=== PATIENT | female | born 1950 | race Caucasian/White ===

== ENCOUNTER 2017-10-15 08:17 | Emergency (ER) | payer MEDICARE, OTHER ==
[~2017-10-15] VITALS: Ht 172.7 cm; Wt 79.4 kg
[~2017-10-15 08:17] MED LIST: GABA300 PO; HYDR1TAB94 PO; METPRE4DP PO; Robaxin-750750 MG PO; TERB250 PO; Voltaren100 GM TOP
[2017-10-15] MEDS ORDERED: Percocet 10-321 EACH PO (09:52)
[2017-10-15] MEDS ORDERED: IBUP600 PO (09:52)
[2017-10-15] MEDS ORDERED: CYCL10 PO (09:52)
[2017-10-15] MEDS ORDERED: ONDA4ODT MM (10:05)
== END 2017-10-15 11:20 | disposition home or self-care (01) ==
LOC: ER 08:17
DX: M54.5 Low back pain (principal); G89.29 Other chronic pain; Z88.0 Allergy status to penicillin; Z79.899 Other long term (current) drug therapy; Z87.891 Personal history of nicotine dependence
CPT/HCPCS: 72100; 96372; 99284; J1885; J3360

== ENCOUNTER → 2017-12-12 | Outpatient (CLI) | payer MEDICARE, OTHER ==
[~2017-12-12] MED LIST changes: +CYCL10 PO; +IBUP600 PO; +ONDA4ODT MM; +Percocet 10-321 EACH PO
== END ==
LOC: PLD 13:10 → LAB SHORT 13:10
DX: L82.1 Other seborrheic keratosis (principal)
CPT/HCPCS: 88305

== ENCOUNTER 2018-10-29 10:59 | Day surgery (SDC) | payer MEDICARE, OTHER ==
[~2018-10-29] VITALS: Ht 172.7 cm; Wt 74.6 kg
[~2018-10-29 10:59] MED LIST changes: +LISI20 PO; +LO-DOSE ASPIRIN81 MG PO; +MELO7.5 PO
[2018-10-29] MEDS ORDERED: GABA400 PO (11:52)
[2018-10-29] MEDS ORDERED: VALA500 (11:53)
--- NOTE | 2018-10-29 11:55 | NUR ---
10/29/18 1155 Delgado Ramirez CALL LIGHT WITHIN REACH
== END 2018-10-29 12:50 | disposition home or self-care (01) ==
LOC: ORSCSDS 10:59
PROVIDERS: Internal Medicine Gastroenterology
PROC: 0D758ZZ Dilation of Esophagus, Via Natural or Artificial Opening Endoscopic (ICD-10-PCS; principal; 2018-10-29 13:00)
PROC: 0DB68ZX Excision of Stomach, Via Natural or Artificial Opening Endoscopic, Diagnostic (ICD-10-PCS; principal; 2018-10-29 13:00)
DX: R13.10 Dysphagia, unspecified (principal); K22.10 Ulcer of esophagus without bleeding; K21.9 Gastro-esophageal reflux disease without esophagitis; K44.9 Diaphragmatic hernia without obstruction or gangrene; K22.2 Esophageal obstruction; K29.70 Gastritis, unspecified, without bleeding; I10 Essential (primary) hypertension; Z86.19 Personal history of other infectious and parasitic diseases; Z86.73 Personal history of transient ischemic attack (TIA), and cerebral infarction without residual deficits; Z79.899 Other long term (current) drug therapy; Z79.82 Long term (current) use of aspirin
CPT/HCPCS: 88305; 88312; J2704; J7120

== ENCOUNTER → 2020-04-25 | Outpatient (CLI) | payer MEDICARE, OTHER ==
[~2020-04-25] MED LIST changes: +GABA400 PO; +VALA500
[2020-04-26 13:34] LABS: Stool Occult Bld Immuno 1 Positive (NEGATIVE)
== END | disposition home or self-care (01) ==
LOC: LAB 07:00
PROVIDERS: Nurse Practitioner Family
DX: Z12.11 Encounter for screening for malignant neoplasm of colon (principal)
CPT/HCPCS: G0328

== ENCOUNTER 2020-07-15 09:52 | Day surgery (SDC) | payer MEDICARE, OTHER ==
[~2020-07-15] VITALS: Ht 172.7 cm; Wt 76.5 kg
== END 2020-07-15 12:18 | disposition home or self-care (01) ==
LOC: ORSCSDS 09:52
PROVIDERS: Internal Medicine Gastroenterology
PROC: 0DBK8ZX Excision of Ascending Colon, Via Natural or Artificial Opening Endoscopic, Diagnostic (ICD-10-PCS; principal; 2020-07-15 11:15)
PROC: 0DBN8ZX Excision of Sigmoid Colon, Via Natural or Artificial Opening Endoscopic, Diagnostic (ICD-10-PCS; principal; 2020-07-15 11:15)
DX: K92.1 Melena (principal); K63.5 Polyp of colon; D12.2 Benign neoplasm of ascending colon; K57.30 Diverticulosis of large intestine without perforation or abscess without bleeding; Z86.19 Personal history of other infectious and parasitic diseases; K64.8 Other hemorrhoids; Z87.891 Personal history of nicotine dependence; Z79.82 Long term (current) use of aspirin; Z79.899 Other long term (current) drug therapy
CPT/HCPCS: 88305; J2405; J2704; J7120

== ENCOUNTER 2022-06-25 11:08 | Emergency (ER) | payer MEDICARE, OTHER ==
[~2022-06-25] VITALS: Ht 177.8 cm; Wt 72.6 kg
[2022-06-25] MEDS ORDERED: Norco 5-325 Ta1 EACH PO ×2 (12:12→12:53)
== END 2022-06-25 12:22 | disposition home or self-care (01) ==
LOC: ER 11:08
DX: M54.50 Low back pain, unspecified (principal); G89.29 Other chronic pain; I10 Essential (primary) hypertension; Z88.0 Allergy status to penicillin; Z88.5 Allergy status to narcotic agent; Z88.6 Allergy status to analgesic agent; Z79.899 Other long term (current) drug therapy; Z79.82 Long term (current) use of aspirin; Z87.891 Personal history of nicotine dependence
CPT/HCPCS: 72100; A9270

== ENCOUNTER 2024-06-30 09:26 | Day surgery (SDC) | payer MEDICARE, OTHER ==
[~2024-06-30] VITALS: Ht 172.7 cm; Wt 68.8 kg
[~2024-06-30 09:26] MED LIST changes: +Lactated Ringer's 1,000 ML IV ONE; +Norco 5-325 Ta1 EACH PO; +propofoL 50 ML IV ONE
[2024-06-30] MEDS ORDERED: ATOR10 (09:51)
[2024-06-30] MEDS ORDERED: CALCIUM 500-VI1 EAC4 (09:52)
[2024-06-30] MEDS ORDERED: VALACYCLOVIR1000 MG (09:52)
[2024-06-30] MEDS ORDERED: Lactated Ringer's 1,000 ML IV ONE (10:35)
[2024-06-30 13:05] VITALS: BP 159/80
--- NOTE | 2024-06-30 13:07 | NUR ---
06/30/24 1307 Curt Liz, ARGELIA INFORMED DR GAINES OF THE PATIENT'S ELEVATED BP. ORDERS REVIEWED AND PT OK TO BE DISCHARGED. PT DRESSED HERSELF MOSTLY THOUGH STILL NEEDED A LITTLE ASSISTANCE. PT WAS WHEELED TO THEIR CAMPER VAN. PT BELONGINGS AND DC PAPERWORK WITH PATIENT.
== END 2024-06-30 12:50 | disposition home or self-care (01) ==
LOC: ORSCSDS 09:26
PROVIDERS: Internal Medicine Gastroenterology
PROC: 0DBN8ZX Excision of Sigmoid Colon, Via Natural or Artificial Opening Endoscopic, Diagnostic (ICD-10-PCS; principal; 2024-06-30 11:00)
PROC: 0DBK8ZX Excision of Ascending Colon, Via Natural or Artificial Opening Endoscopic, Diagnostic (ICD-10-PCS; principal; 2024-06-30 11:00)
DX: Z12.11 Encounter for screening for malignant neoplasm of colon (principal); R19.5 Other fecal abnormalities; D12.2 Benign neoplasm of ascending colon; D12.5 Benign neoplasm of sigmoid colon; Z86.0102 Personal history of hyperplastic colon polyps; Z86.0101 Personal history of adenomatous and serrated colon polyps; I10 Essential (primary) hypertension; K21.9 Gastro-esophageal reflux disease without esophagitis; Z86.19 Personal history of other infectious and parasitic diseases; Z86.73 Personal history of transient ischemic attack (TIA), and cerebral infarction without residual deficits; Z79.899 Other long term (current) drug therapy; Z87.891 Personal history of nicotine dependence
CPT/HCPCS: 88305; J2704; J7120